=== PATIENT | male | born 2000 | race Hispanic/Latino ===

== ENCOUNTER 2025-03-31 14:48 | Emergency (ER) | payer OTHER ==
[~2025-03-31] VITALS: Ht 177.8 cm; Wt 129.3 kg
[2025-03-31 15:21] VITALS: PULSE 88; RESP 18; TEMP 98.7; O2SAT 100
[2025-03-31] MEDS ORDERED: BACTRIM DS TAB1 EACH PO (16:03)
== END 2025-03-31 16:31 | disposition home or self-care (01) ==
LOC: ER 15:47
DX: L73.9 Follicular disorder, unspecified (principal)
CPT/HCPCS: 99282

== ENCOUNTER 2025-04-10 11:50 | Emergency (ER) | payer OTHER ==
[~2025-04-10] VITALS: Ht 177.8 cm; Wt 129.3 kg
[~2025-04-10 11:50] MED LIST: BACTRIM DS TAB1 EACH PO
[2025-04-10 12:00] VITALS: TEMP 98.4
[2025-04-10 12:57] LABS: BASOPHILS % 0.4 % (0.0-1.0); EOSINOPHILS % 4.4 % (0.0-6.0); LYMPHOCYTES % 39.4 % (18.0-39.1); MONOCYTES % 9.9 % (4.4-11.3); NEUTROPHILS % 45.7 % (38.7-80.0); RED CELL DISTRIBUTION WIDTH 13.2 % (11.7-14.4)
[2025-04-10] MEDS: SODIUM CHLORIDE 0.9% 1000ML 1,000 ML IV STA (13:30)
[2025-04-10] MEDS: ONDANSETRON HCL INJ 2MG/ML 2ML 2 MG/ML VIAL IV STA (13:30)
[2025-04-10] MEDS: Morphine 4mg INJECTION 4 MG/ML INJ IV STA (13:30)
[2025-04-10 13:56] LABS: EST GLOMERULAR FILTRATION RATE 116.0 ML/MIN (>=60)
[2025-04-10] MEDS ORDERED: IOPAMIDOL 370 MG/ML 100 ML INFUS..BTL INJ ONE (14:52)
[2025-04-10 15:00] VITALS: PULSE 44; RESP 17; O2SAT 99
[2025-04-10] MEDS ORDERED: METHOCARBAMOL750 MG PO (15:46)
[2025-04-10 19:46] LABS: INR 0.93
== END 2025-04-10 16:20 | disposition home or self-care (01) ==
LOC: ER 11:56
DX: R10.31 Right lower quadrant pain (principal); F17.210 Nicotine dependence, cigarettes, uncomplicated
CPT/HCPCS: 36415; 74177; 80053; 85025; 85610; 85730; 99284; J2270; J2405; J7030; Q9967